=== PATIENT | female | born 1985 | race Caucasian/White ===

== ENCOUNTER 2017-09-19 19:12 | Emergency (ER) | payer SELFPAY ==
[~2017-09-19] VITALS: Ht 167.6 cm; Wt 68.0 kg
[2017-09-19 19:21] VITALS: BP 95/67; Ht 167.6 cm; Wt 68.0 kg
== END 2017-09-19 19:48 | disposition left against medical advice (07) ==
LOC: ED 19:12
DX: F41.0 Panic disorder [episodic paroxysmal anxiety] (principal); F20.2 Catatonic schizophrenia; Z76.0 Encounter for issue of repeat prescription
CPT/HCPCS: G0480

== ENCOUNTER 2017-09-20 00:27 | Emergency (ER) | payer SELFPAY ==
[~2017-09-20] VITALS: Ht 162.6 cm; Wt 71.7 kg
[2017-09-20 00:42] VITALS: Ht 162.6 cm; Wt 71.7 kg
[2017-09-20 02:04] VITALS: BP 107/67
== END 2017-09-20 02:04 | disposition home or self-care (01) ==
LOC: ED 00:27
DX: S09.90XA Unspecified injury of head, initial encounter (principal); Z88.8 Allergy status to other drugs, medicaments and biological substances; W22.8XXA Striking against or struck by other objects, initial encounter; Y93.89 Activity, other specified; Y92.89 Other specified places as the place of occurrence of the external cause; Y99.8 Other external cause status